=== PATIENT | male | born 1990 | race American Indian/Alaskan Native ===

== ENCOUNTER 2017-07-10 20:05 | Emergency (ER) | payer OTHER ==
[2017-07-10 20:41] VITALS: BP 127/65
[2017-07-10] MEDS ORDERED: MOTRIN PO ONE (21:15)
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
== END 2017-07-10 22:37 | disposition home or self-care (01) ==
LOC: ED 20:05
DX: M54.2 Cervicalgia (principal)
CPT/HCPCS: 99283